=== PATIENT | female | born 1940 | race African-American/Black ===

== ENCOUNTER 2020-05-26 10:32 | Emergency (ER) | payer BC, MEDICARE ==
[~2020-05-26] VITALS: Ht 172.7 cm; Wt 68.1 kg
--- NOTE | 2020-05-26 11:01 | ED.ADGEN ---
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 Patient reports that she does not know what happened. I spoke with the COA at the office Tessy who witnessed the event. She states that she had brought the patient back to the room the patient was in the exam chair when she started slurring her words and was not answering questions. Patient then asked for a glass of water so Tessy gave her some water and proceeded to choke on the water when she drank it. Therefore the office called EMS and had the patient brought to the emergency room. Patient denies any headache, vision changes, dizziness, chest pain, palpitations, nausea, vomiting, diarrhea, numbness, tingling, or weakness. Patient states she does not know what happened. She is currently alert and oriented x4. She currently denies any pain or complaints. Review of Systems: Review of Systems: Complete ROS is negative unless otherwise noted in HPI. Allergies: Allergies: Allergies Coded Allergies Type Severity Reaction Last Updated Verified No Known Drug Allergies 05/26/20 No Physical Exam: PE: See Above Constitutional: Well developed, well nourished, no acute distress, non-toxic appearance. [] HENT: Normocephalic, atraumatic, bilateral external ears normal, nose normal. [] Eyes: PERRLA, EOMI, conjunctiva normal, no discharge. [] Neck: Normal range of motion, no stridor. [] Cardiovascular:Heart rate regular rhythm Lungs & Thorax: Respirations even and unlabored, no retractions, no respiratory distress Abdomen: soft, no tenderness Skin: Warm, dry, no erythema, no rash. [] Extremities: No cyanosis, ROM intact, 1+ edema LLE, no edema RLE Neurologic: Alert and oriented X 3, motor intact, sensation intact, no focal deficits noted. [] Psychologic: Affect normal, judgement normal, mood normal. [] Current Patient Data: Labs: Laboratory Tests Test 05/26/20 10:50 1/26/21 11:35 White Blood Count 6.7 x10^3/uL (4.0-11.0) Red Blood Count 4.17 x10^6/uL (3.50-5.40) Hemoglobin 11.2 g/dL (12.0-15.5) L Hematocrit 33.8 % (36.0-47.0) L Mean Corpuscular Volume 81 fL (79-100) Mean Corpuscular Hemoglobin 27 pg (25-35) Mean Corpuscular Hemoglobin Concent 33 g/dL (31-37) Red Cell Distribution Width 15.9 % (11.5-14.5) H Platelet Count 246 x10^3/uL (140-400) Neutrophils (%) (Auto) 60 % (31-73) Lymphocytes (%) (Auto) 27 % (24-48) Monocytes (%) (Auto) 9 % (0-9) Eosinophils (%) (Auto) 4 % (0-3) H Basophils (%) (Auto) 1 % (0-3) Neutrophils # (Auto) 4.0 x10^3/uL (1.8-7.7) Lymphocytes # (Auto) 1.8 x10^3/uL (1.0-4.8) Monocytes # (Auto) 0.6 x10^3/uL (0.0-1.1) Eosinophils # (Auto) 0.3 x10^3/uL (0.0-0.7) Basophils # (Auto) 0.1 x10^3/uL (0.0-0.2) Sodium Level 146 mmol/L (136-145) H Potassium Level 3.5 mmol/L (3.5-5.1) Chloride Level 106 mmol/L (98-107) Carbon Dioxide Level 28 mmol/L (21-32) Anion Gap 12 (6-14) Blood Urea Nitrogen 21 mg/dL (7-20) H Creatinine 1.5 mg/dL (0.6-1.0) H Estimated GFR (Cockcroft-Gault) 40.7 BUN/Creatinine Ratio 14 (6-20) Glucose Level 115 mg/dL (70-99) H Calcium Level 8.0 mg/dL (8.5-10.1) L Magnesium Level 1.7 mg/dL (1.8-2.4) L Total Bilirubin 0.4 mg/dL (0.2-1.0) Aspartate Amino Transferase (AST) 16 U/L (15-37) Alanine Aminotransferase (ALT) 16 U/L (14-59) Alkaline Phosphatase 79 U/L (46-116) Creatine Kinase 108 U/L (26-192) Creatine Kinase MB (Mass) 1.1 ng/mL (0.0-3.6) Creatine Kinase MB Relative Index 1.0 % (0-4) Troponin I Quantitative < 0.017 ng/mL (0.000-0.055) Total Protein 7.1 g/dL (6.4-8.2) Albumin 2.8 g/dL (3.4-5.0) L Albumin/Globulin Ratio 0.7 (1.0-1.7) L Urine Collection Type U cath Urine Color Yellow Urine Clarity Cloudy Urine pH 6.0 (<5.0-8.0) Urine Specific [place] 1.010 (1.000-1.030) Urine Protein Negative mg/dL (NEG-TRACE) Urine Glucose (UA) Negative mg/dL (NEG) Urine Ketones (Stick) Trace mg/dL (NEG) Urine Blood Trace (NEG) Urine Nitrite Positive (NEG) Urine Bilirubin Negative (NEG) Urine Urobilinogen Dipstick 0.2 mg/dL (0.2 mg/dL) Urine Leukocyte Esterase Large (NEG) Urine RBC Field obscured /HPF (0-2) Urine WBC Tntc /HPF (0-4) Urine Bacteria Many /HPF (0-FEW) Laboratory Tests 05/26/20 10:50 Laboratory Tests 05/26/20 10:50 Vital Signs: Vital Signs Date Time Temp Pulse Resp B/P (MAP) Pulse Ox O2 Delivery O2 Flow Rate FiO2 05/26/20 11:31 65 18 110/59 (76) 95 Room Air 05/26/20 10:32 97.9 97.9 EKG: EK-sinus rhythm, rate 68, leftward axis, no STEMI, read by Dr. Heaton[] Heart Score: Risk Factors: Risk Factors: DM, Current or recent (<one month) smoker, HTN, HLP, family history of CAD, obesity. Risk Scores: Score 0 - 3: 2.5% MACE over next 6 weeks - Discharge Home Score 4 - 6: 20.3% MACE over next 6 weeks - Admit for Clinical Observation Score 7 - 10: 72.7% MACE over next 6 weeks - Early Invasive Strategies Radiology/Procedures: Radiology/Procedures: PROCEDURE: CT HEAD WO CONTRAST CT HEAD/BRAIN WO History: Reason: syncopal episode / Spl. Instructions: / History: Comparison: MRI August 14, 2018 Technique: Noncontrast CT imaging was performed of the head. Exposure: One or more of the following individualized dose reduction techniques were utilized for this examination: 1. Automated exposure control 2. Adjustment of the mA and/or kV according to patient size 3. Use of iterative reconstruction technique. Findings: No intracranial hemorrhage. No mass effect. No hydrocephalus. Left anterior middle cranial fossa extra-axial mass measures 1.8 x 1.1 cm. There is peripheral calcification. Chronic appearing left basal ganglia lacunar infarct. Moderate foci of decreased attenuation within the hemispheric white matter, most often due to chronic microvascular ischemia. Intracranial atheromatous ignacio cifications. Senescent basal ganglia calcifications. Imaged orbits are unremarkable. Minimal fluid within the left maxillary sinus. Mastoid air cells are clear. TMJ arthropathy. No acute calvarial fracture. Hyperostosis frontalis interna. Impression: 1. No acute intracranial abnormality. 2. Chronic appearing left basal ganglia lacunar infarct. 3. Moderate sequela chronic microvascular ischemia. 4. Unchanged right anterior middle cranial fossa extra-axial mass, favor meningioma. [] Course & Med Decision Making: Course & Med Decision Making Pertinent Labs and Imaging studies reviewed. (See chart for details) 1210- I offered to admit the patient for a TIA, pt refuses admission. She states that her symptoms are because of the gabapentin her PCP prescribed for her last week. PT reports that she has taken this medication in the past for her neuropathy and it had the same affect. Pt states that she tried to tell her PCP this last week but her PCP insisted that she takes the medication and stops taking her daily NSAID. I encouraged the patient to call her PCP and inform them of the visit today and instructed her to return to the ER if her symptoms wor sened. PT verbalized an understanding of home care, medications, follow-up, and return to ED instructions and was in agreement with the plan of care. [] Lilibeth Disclaimer: Draglia Disclaimer: This electronic medical record was generated, in whole or in part, using a voice recognition dictation system. Departure Departure Impression: Primary Impression: Episode of syncope Disposition: 01 DC HOME SELF CARE/HOMELESS Condition: STABLE Patient Instructions: Syncope, [id number] Additional Instructions: Call your primary care doctor's office, Sherry Herrera APRN, this afternoon and inform them of today's visit and your concerns of taking gabapentin. Return to the ER if your symptoms worsen. Problem Qualifiers Primary Impression: Episode of syncope Syncope type: unspecified Qualified Codes: R55 - Syncope and collapse VALERI CHUNG APRN May 26, 2020 11:01
[2020-05-26 11:07] LABS: BASO # 0.1 x10^3/uL (0.0-0.2); BASO % 1 % (0-3); EOS # 0.3 x10^3/uL (0.0-0.7); EOS % 4 % (0-3); HEMATOCRIT 33.8 % (36.0-47.0); HEMOGLOBIN 11.2 g/dL (12.0-15.5); LYMPH # 1.8 x10^3/uL (1.0-4.8); LYMPH % 27 % (24-48); MEAN CORPUSCULAR HEMOGLOBIN 27 pg (25-35); MEAN CORPUSCULAR HGB CONC 33 g/dL (31-37); MEAN CORPUSCULAR VOLUME 81 fL (79-100); MONO # 0.6 x10^3/uL (0.0-1.1); MONO % 9 % (0-9); NEUT % 60 % (31-73); PLATELET COUNT 246 x10^3/uL (140-400); RED BLOOD COUNT 4.17 x10^6/uL (3.50-5.40); RED CELL DISTRIBUTION WIDTH 15.9 % (11.5-14.5); WHITE BLOOD COUNT 6.7 x10^3/uL (4.0-11.0)
[2020-05-26 11:15] LABS: CREATININE 1.5 mg/dL (0.6-1.0); GFR 40.7; POTASSIUM 3.5 mmol/L (3.5-5.1)
[2020-05-26 11:21] LABS: ALBUMIN 2.8 g/dL (3.4-5.0); ALBUMIN/GLOBULIN RATIO 0.7 (1.0-1.7); MAGNESIUM 1.7 mg/dL (1.8-2.4); TOTAL BILIRUBIN 0.4 mg/dL (0.2-1.0); TOTAL PROTEIN 7.1 g/dL (6.4-8.2)
--- NOTE | 2020-05-26 11:40 | RAD ---
CT HEAD/BRAIN WO History: Reason: syncopal episode / Spl. Instructions: / History: Comparison: MRI August 14, 2018 Technique: Noncontrast CT imaging was performed of the head. Exposure: One or more of the following individualized dose reduction techniques were utilized for thi s examination: 1. Automated exposure control 2. Adjustment of the mA and/or kV according to patient size 3. Use of iterative reconstruction technique. Findings: No intracranial hemorrhage. No mass effect. No hydrocephalus. Left anterior middle cranial fossa extra-axial mass measures 1.8 x 1.1 cm. There is peripheral calcif ication. Chronic appearing left basal ganglia lacunar infarct. Moderate foci of decreased attenuation within the hemispheric white matter, most often due to chronic microvascular ischemia. Intracranial atheromatous calcifications. Senescent basal ganglia calcificat ions. Imaged orbits are unremarkable. Minimal fluid within the left maxillary sinus. Mastoid air cells are clear. TMJ arthropathy. No acute calvarial fracture. Hyperostosis frontalis interna. Impression: 1. No acute intracranial abnormality. 2. Chronic appearing left basal ganglia lacunar infarct. 3. Moderate sequela chronic microvascular ischemia. 4. Unchanged right anterior middle cranial fossa extra-axial mass, favor meningioma. Electronically signed by: Say Soria DO (05/26/2020 11:38 AM) [id number]
[2020-05-26 11:45] LABS: BILIRUBIN,URINE NEGATIVE (NEG); CLARITY,URINE CLOUDY; COLOR,URINE YELLOW; NITRITE,URINE POSITIVE (NEG); PROTEIN,URINE NEGATIVE (NEG-TRACE); UROBILINOGEN,URINE 0.2 mg/dL (0.2 mg/dL)
[2020-05-26 11:52] LABS: BACTERIA,URINE MANY /HPF (0-FEW); WBC,URINE TNTC /HPF (0-4)
[2020-05-26 11:54] LABS: RBC,URINE FIELD OBSCURED /HPF (0-2)
[2020-05-26 12:32] VITALS: BP 143/72
--- NOTE | 2020-05-28 15:38 | VNOTE ---
CALL BACK NOTE CALL BACK Microbiology 05/26/20 Urine Culture - Final, Complete 05/26/20 Antimicrobic Susceptibility - Final, Complete Called patient regarding positive urine culture she states she has no UTI symptoms and has already followed up with her PCP ANDREY KENDRICK APRN May 28, 2020 15:38
== END 2020-05-26 12:48 | disposition home or self-care (01) ==
LOC: ER 10:32
DX: R55 Syncope and collapse (principal); E11.40 Type 2 diabetes mellitus with diabetic neuropathy, unspecified; E11.39 Type 2 diabetes mellitus with other diabetic ophthalmic complication; I10 Essential (primary) hypertension
CPT/HCPCS: 36415; 70450; 80053; 81001; 82553; 83735; 84484; 85025; 87077; 87086; 87186; 99285-25